=== PATIENT | female | born 1950 | race Two or more races ===

== ENCOUNTER 2021-02-24 07:51 | Emergency (ER) | payer OTHER ==
[~2021-02-24] VITALS: Ht 162.6 cm; Wt 72.6 kg
[2021-02-24] MEDS ORDERED: LOSARTAN POTASS50 MG (08:01)
[2021-02-24] MEDS ORDERED: GLIPIZIDE ER10 MG (08:01)
[2021-02-24] MEDS ORDERED: GLUMETZA500 MG (08:01)
[2021-02-24] MEDS ORDERED: ATORVASTATIN CA10 MG (08:02)
[2021-02-24] MEDS ORDERED: ECOTRIN81 MG (08:02)
[2021-02-24] MEDS ORDERED: DICLOFENAC POTA50 MG PO (13:25)
[2021-02-24] MEDS ORDERED: ULTRAM50 MG PO (13:25)
[2021-02-24] MEDS ORDERED: VOLTAREN ARTHRI20 GM TOP (13:25)
[2021-02-24] MEDS ORDERED: CYCLOBENZAPRINE10 MG PO (13:25)
== END 2021-02-24 13:42 | disposition home or self-care (01) ==
LOC: ER 07:51
DX: M25.552 Pain in left hip (principal)